=== PATIENT | female | born 1975 | race Caucasian/White ===

== ENCOUNTER → 2017-06-08 | Outpatient (CLI) | payer OTHER ==
--- NOTE | 2017-06-08 14:36 | RAD ---
DEXA scan 06/08/2017 Clinical history: Risk factors for osteoporosis. Recent rib fracture of unknown cause. Ovarian failure. Technique: DEXA of the lumbar spine and the right hip was performed. FINDINGS: The mean bone mineral density of the lumbar spine is 0.944 g/sq cm. This corresponds to a T score of -2.0. This is consistent with moderate osteopenia.. The mean bone mineral density of the right hip is 0.917 g/sq cm. This corresponds to a T score of -0.7. This is within normal limits. IMPRESSION: 1. The mean bone mineral density of the right hip is within normal limits. 2. Moderate osteopenia of the lumbar spine. According to [employer], the definition of osteoporosis and osteopenia for women is as follows: Normal = T score at or above -1.0 SD. Osteopenia = T score between -1.0 and -2.5 SD. Osteoporosis = T score at or below -2.5 SD.
== END | disposition home or self-care (01) ==
LOC: DXRAD 13:48
PROVIDERS: ATTEND Family Medicine Sports Medicine
DX: M85.88 Other specified disorders of bone density and structure, other site (principal); E28.39 Other primary ovarian failure
CPT/HCPCS: 77080